=== PATIENT | male | born 2000 | race African-American/Black ===

== ENCOUNTER 2019-10-31 07:26 | Day surgery (SDC) | payer OTHER ==
[2019-10-30 18:04] VITALS: BMI 21.7
[2019-10-31 08:34] LABS: ALBUMIN 4.1 g/dl (3.4-5.0); BLOOD UREA NITROGEN 11.4 mg/dL (7-18); CALCIUM 8.9 mg/dL (8.5-10.1); POTASSIUM 4.3 mmol/L (3.5-5.1); TOT PROT 7.8 g/dl (6.4-8.2)
[2019-10-31] MEDS ORDERED: KETOROLAC TROMETHAMINE 30 MG/1 ML VIAL ONE (09:29)
[2019-10-31] MEDS ORDERED: DEXAMETHASONE SOD PHOSPHATE 4 MG/1 ML VIAL ONE (09:29)
[2019-10-31] MEDS ORDERED: PROPOFOL 20 ML ONE (09:29)
[2019-10-31] MEDS ORDERED: MIDAZOLAM HCL 2 MG/2 ML SINGLE DOSE VIAL ONE (09:29)
[2019-10-31] MEDS ORDERED: ceFAZolin SODIUM 1 GM VIAL ONE (09:30)
--- NOTE | 2019-10-31 09:41 | HP ---
History & Physical Update - History History: No Change - Physical Physical: No Change - Assessment Assessment: No Change - Plan Plan: No Change (H & P done on 09/30/2019)
[2019-10-31] MEDS ORDERED: GLYCOPYRROLATE 0.2 MG/1 ML VIAL ONE (09:46)
[2019-10-31] MEDS ORDERED: NEOSTIGMINE METHYLSULFATE 0.5 MG/ML - 10 ML MDV ONE (09:46)
[2019-10-31] MEDS ORDERED: ceFAZolin 2 GRAM PREMIX BAG IVPB ONE (10:32)
[2019-10-31] MEDS ORDERED: BUPIVACAINE HCL/PF 0.25% (2.5MG/ML) 10 ML VIAL ONE (10:40)
[2019-10-31] MEDS ORDERED: ROCURONIUM BROMIDE 50 MG/5 ML SYRINGE ONE (10:41)
[2019-10-31] MEDS ORDERED: BUPIVACAINE HCL/PF 0.5% (5 MG/ML) 30 ML VIAL IJ ONE ×2 (10:48)
--- NOTE | 2019-10-31 12:29 | OP ---
Operative Note - Note: Operative Date: 10/31/19 Pre-Operative Diagnosis: Umbilical hernia with obstruction Operation: Open umbilical hernia repair with Phasix mesh Findings: 3 cm umbilical defect with partially incarcerated omentum and small bowel Implants: Phasix mesh Post-Operative Diagnosis: Same as Pre-op Surgeon: Karel Lucero Reimbursement Spec: Benjy Veronica Anesthesia: General Specimens Removed: hernia sac Estimated Blood Loss (mls): 10 Operative Report Dictated: Yes
[2019-10-31] MEDS ORDERED: oxyCODONE HCL 5 MG TABLET PO PRN ×2 (12:36)
[2019-10-31] MEDS ORDERED: ONDANSETRON 4 MG/2 ML VIAL IVPUSH PRN (12:36)
[2019-10-31] MEDS ORDERED: LACTATED RINGERS SOLUTION 1,000 ML IV SCH (12:45)
[2019-10-31 13:33] VITALS: TEMP 97.7
[2019-10-31] MEDS ORDERED: oxyCODONE HCL 5 MG TABLET ONE (14:13)
--- NOTE | 2019-10-31 14:28 | OP ---
DATE OF OPERATION: 10/31/2019 PROCEDURE: Open umbilical hernia repair with Phasix mesh. PREOPERATIVE DIAGNOSIS: Umbilical hernia with obstruction. POSTOPERATIVE DIAGNOSIS: Umbilical hernia with obstruction. SURGEON: Karel Lucero MD TRIGONOMETRY TUTOR: MARIA ANTONIA Bahena ANESTHESIA: General via laryngeal mask airway. FINDINGS AND PROCEDURE: This is a 18-year-old male who presents with an umbilical bulge since childhood associated with occasional pain on exertion. Physical exam: Patient has a 4-cm, bulging umbilicus which is partially reducible. The bulge would readily return on release of pressure. Due to the symptoms, patient was advised, patient also desired umbilical hernia repair, and consent was obtained, after discussing the risks, benefits, and alternatives to the procedure. Patient was brought to the operating room and placed in supine position. General anesthesia via laryngeal mask airway was administered. The abdomen was prepped and draped in the usual sterile fashion. Using 0.5% Marcaine, local anesthesia was administered to the proposed incision site. A 3-cm vertical incision over the umbilicus was made using scalpel blade No. 15 with dissection carried down to the subcutaneous tissue. Further dissection using Bovie cautery was done until the hernia sac was entered, which contained a reducible omentum, but there was a small bulge which was quite adherent to the sac. This was carefully dissected sharply using Metzenbaum scissors, until the adhesion was completely released, and the loop of bowel returned back into the peritoneal cavity. Then, the sac was partially excised. The fascial defect was noted to be about 3 cm in its widest diameter. The subcutaneous layer was then undermined about 3 cm from the margins of the hernia using Bovie cautery. The hernia defect was then primarily repaired with interrupted aiirnx-li-kezmc Prolene 0 sutures. After this, a 3 x 4-inch piece of Phasix mesh was deployed as the only reinforcement of the repair and tacked to the abdominal wall with interrupted Vicryl 3-0 sutures. A No. 7 Jese-Diaz drain was deployed over the mesh, and exited via a separate stab wound to the left of the incision, and connected to bulb suction to prevent seroma formation. The wound was closed with interrupted Vicryl 3-0 suture for the dermis and continuous Biosyn 4-0 suture for the subcuticular layer. The wound was then covered with pressure dressing. Patient was successfully extubated and transferred to the postanesthesia care unit in satisfactory condition. ESTIMATED BLOOD LOSS: About 10 mL. WOUND CLASS: Clean; the patient received a gram of Ancef prior to the start of the procedure. KAREL LUCERO M.D. [id number]
[2019-10-31 15:28] VITALS: BP 130/78; PULSE 70
--- NOTE | 2019-11-03 17:05 | PATH ---
Surgical Pathology Report Patient Name: BARBARA NAM [facility]. Rec. #: [id number] /Age/Gender: 2000 (Age: 18) / M Account: [id number] Location: [facility] SURGICAL Taken: 10/31/2019 Received: 10/31/2019 Reported: 11/03/2019 Physicians: Karel Lucero M.D. Specimen(s) Received UMBILICAL HERNIA SAC Clinical History Umbilical hernia Final Diagnosis UMBILICAL HERNIA SAC, OPEN UMBILICAL HERNIA REPAIR: FIBROMEMBRANOUS AND FIBROADIPOSE TISSUE COMPATIBLE WITH HERNIA SAC. Electronically Signed Kavitha Jackson M.D. Gross Description Received in formalin labeled "umbilical hernia sac," is a 1.3 x 0.7 x 0.2 cm vega-pink portion of fibromembranous tissue, consistent with a hernia sac. The specimen is sectioned and entirely submitted in one cassette. /10/31/2019 [facility]10/[facility]/2019
--- NOTE | 2019-11-04 10:26 | SURG ---
Surgery Pantograph Setter Note Pantograph Setter: Benjy Veronica PA-C Date of Service: 10/30/19 Diagnosis: Umbilical hernia with obstruction Procedure: Open umbilical hernia repair with Phasix mesh I was present for the entirety of the operative procedure. For further detail, please refer to operative report. Visit type - Case Type Case Type: Scheduled - Emergency Emergency Visit: No - New patient This patient is new to me today: Yes Date on this admission: 11/04/19 - Critical Care Critical Care patient: No
== END 2019-10-31 15:28 | disposition home or self-care (01) ==
LOC: JASU-SURG 07:26
PROVIDERS: ATTEND Surgery
PROC: 0WUF0JZ Supplement Abdominal Wall with Synthetic Substitute, Open Approach (ICD-10-PCS; principal; 2019-10-31 09:30)
DX: K42.0 Umbilical hernia with obstruction, without gangrene (principal)
CPT/HCPCS: 36415; 80053; 88302-TC; 94760